=== PATIENT | male | born 1935 | race Caucasian/White ===

== ENCOUNTER 2018-02-25 10:16 | Emergency (ER) | payer MEDICARE ==
[~2018-02-25] VITALS: Ht 180.3 cm; Wt 130.9 kg
[2018-02-25 10:21] VITALS: TEMP 97.7
[2018-02-25 11:10] LABS: BASO # 0.1 (0.0-0.2); BASO % 0.9 % (0.0-2.0); EOS # 0.2 (0.0-0.7); EOS % 2.9 % (0-4.0); GRAN # 4.1 (1.4-6.5); GRAN % 58.4 % (42.2-75.2); HEMOGLOBIN 11.3 g/dl (13.5-18.0); LYMPH # 1.9 (1.2-3.4); MEAN CELL VOLUME 88 fl (80.0-100.0); MEAN CORPUSCULAR HEMOGLOBIN 30 pg (27.0-31.0); MEAN CORPUSCULAR HGB CONC 34 g/dl (33.0-37.0); MEAN PLATELET VOLUME 10.5 fl (7.4-10.4); MONO # 0.7 (0.1-0.6); MONO % 10.4 % (1.7-9.3); PLATELET COUNT 234 K/mm3 (130-400); RED BLOOD COUNT 3.77 M/mm3 (4.20-5.60); REDCELL DISTRIBUTION WIDTH-CV 13.8 % (11.5-14.5)
[2018-02-25 11:12] LABS: HEMATOCRIT 33.2 % (42.0-52.0)
[2018-02-25 11:17] LABS: BILIRUBIN,TOTAL 0.8 mg/dL (0.0-1.0); C-REACTIVE PROTEIN 2.4 mg/dL (0.0-0.9); CALCIUM 9.2 mg/dL (8.4-10.2); CREATININE, serum 2.58 mg/dL (0.66-1.25); POTASSIUM 3.5 mmol/L (3.4-5.0); TOTAL PROTEIN 8.1 gm/dL (6.4-8.2)
[2018-02-25] MEDS ORDERED: PERCOCET 325 MG1 TA2 PO (11:39)
[2018-02-25] MEDS ORDERED: MEVACOR40 MG PO (11:39)
[2018-02-25] MEDS ORDERED: LASIX 80MG TABL80 MG PO (11:40)
[2018-02-25] MEDS ORDERED: ZYLOPRIM 100MG100 MG PO (11:41)
[2018-02-25] MEDS ORDERED: COZAAR100 MG PO (11:41)
[2018-02-25] MEDS ORDERED: NEURONTIN300 MG/CAP PO (11:42)
[2018-02-25] MEDS ORDERED: FLOMAX 0.40.4 MG/CAP PO (11:43)
[2018-02-25] MEDS ORDERED: ZANAFLEX 4MG TAB4 MG PO (11:43)
[2018-02-25] MEDS ORDERED: TRESIBA FL200 UNIT/1 SQ (11:47)
[2018-02-25] MEDS ORDERED: ZAROXOLYN 2.52.5 MG PO (11:48)
[2018-02-25] MEDS ORDERED: FLONASE NASAL S16 GM NS (11:50)
[2018-02-25] MEDS ORDERED: PROAIR RES117 MCG/Ac IH (11:51)
[2018-02-25] MEDS ORDERED: MASON NATURAL500 MG PO (11:52)
[2018-02-25] MEDS ORDERED: CRANBERRY 100 M1 SGL (11:52)
[2018-02-25] MEDS ORDERED: OMEGA-3 1000 MG1 CAP PO (11:52)
[2018-02-25] MEDS ORDERED: MELATONIN5 M1 SL (11:53)
[2018-02-25] MEDS ORDERED: PROTONIX 40MG T40 MG PO (11:54)
[2018-02-25] MEDS ORDERED: PROSCAR 5MG5 MG PO (11:57)
[2018-02-25 14:20] VITALS: BP 123/72; PULSE 85
== END 2018-02-25 14:20 | disposition home or self-care (01) ==
LOC: COL.ER 10:16
PROVIDERS: Family Medicine
DX: E11.43 Type 2 diabetes mellitus with diabetic autonomic (poly)neuropathy (principal); E11.40 Type 2 diabetes mellitus with diabetic neuropathy, unspecified; K31.84 Gastroparesis; Z90.49 Acquired absence of other specified parts of digestive tract; Z79.4 Long term (current) use of insulin
CPT/HCPCS: J1815; J2405; J7030

== ENCOUNTER → 2018-03-19 | Outpatient (REF) ==
[~2018-03-19] MED LIST: COZAAR100 MG PO; CRANBERRY 100 M1 SGL; FLOMAX 0.40.4 MG/CAP PO; FLONASE NASAL S16 GM NS; LASIX 80MG TABL80 MG PO; LEVAQUIN 750MG750 M1 PO; LEVEMIR100 U/ML SQ; MASON NATURAL500 MG PO; MELATONIN5 M1 SL; MEVACOR40 MG PO; NEURONTIN300 MG/CAP PO; NOVLOG SQ; NOVOLOG 100U100 U/M1 SQ; OMEGA-3 1000 MG1 CAP PO; PERCOCET 325 MG1 TA2 PO; PREDNISONE20 MG PO; PROAIR RES117 MCG/Ac IH; PROSCAR 5MG5 MG PO; PROTONIX 40MG T40 MG PO; REGLAN 10MG10 MG/TAB PO; TRESIBA FL200 UNIT/1 SQ; ZANAFLEX 4MG TAB4 MG PO; ZAROXOLYN 2.52.5 MG PO; ZYLOPRIM 100MG100 MG PO
[2018-03-19 09:40] LABS: CALCIUM 9.2 mg/dL (8.4-10.2); CREATININE, serum 1.2 mg/dL (0.66-1.25); POTASSIUM 5.1 mmol/L (3.4-5.0)
== END ==
LOC: ZLAB.STJ 09:16
PROVIDERS: Internal Medicine
DX: Z01.89 Encounter for other specified special examinations (principal)

== ENCOUNTER → 2018-03-20 | Outpatient (REF) ==
[2018-03-20 09:29] LABS: HEMOGLOBIN 10.9 g/dl (13.5-18.0); MEAN CELL VOLUME 89 fl (80.0-100.0); MEAN CORPUSCULAR HEMOGLOBIN 29 pg (27.0-31.0); MEAN CORPUSCULAR HGB CONC 33 g/dl (33.0-37.0); MEAN PLATELET VOLUME 8.9 fl (7.4-10.4); PLATELET COUNT 519 K/mm3 (130-400); RED BLOOD COUNT 3.72 M/mm3 (4.20-5.60); REDCELL DISTRIBUTION WIDTH-CV 14.5 % (11.5-14.5)
[2018-03-20 10:06] LABS: BAND 3 % (0-10); EOSINOPHIL 3 % (0-4); LYMPHOCYTE 37 % (20.0-51.0); NEUTROPHILS 55 % (42.0-75.2)
[2018-03-20 10:07] LABS: PLATELET ESTIMATE NORMAL (NORMAL)
== END ==
LOC: ZLAB.STJ 09:23
PROVIDERS: Internal Medicine
DX: D64.9 Anemia, unspecified (principal)

== ENCOUNTER → 2018-06-04 | Outpatient (CLI) | payer MEDICARE | LOC: SUN.DIA 05-08 14:11 | DX: E11.40 Type 2 diabetes mellitus with diabetic neuropathy, unspecified (principal); E03.9 Hypothyroidism, unspecified; I10 Essential (primary) hypertension; E66.9 Obesity, unspecified; F17.210 Nicotine dependence, cigarettes, uncomplicated | CPT/HCPCS: G0108 ==

== ENCOUNTER 2018-06-11 00:54 | Observation (INO) | payer MEDICARE ==
[~2018-06-11] VITALS: Ht 180.3 cm; Wt 130.5 kg
[2018-06-11 01:22] LABS: BASO # 0.1 (0.0-0.2); BASO % 1.2 % (0.0-2.0); EOS # 0.4 (0.0-0.7); EOS % 4.1 % (0-4.0); GRAN # 5.2 (1.4-6.5); GRAN % 50.6 % (42.2-75.2); HEMOGLOBIN 10.6 g/dl (13.5-18.0); LYMPH # 3.5 (1.2-3.4); LYMPH % 34.5 % (20.0-51.0); MEAN CELL VOLUME 87 fl (80.0-100.0); MEAN CORPUSCULAR HEMOGLOBIN 28 pg (27.0-31.0); MEAN CORPUSCULAR HGB CONC 32 g/dl (33.0-37.0); MEAN PLATELET VOLUME 9.6 fl (7.4-10.4); MONO % 9.3 % (1.7-9.3); PLATELET COUNT 289 K/mm3 (130-400); RED BLOOD COUNT 3.78 M/mm3 (4.20-5.60); REDCELL DISTRIBUTION WIDTH-CV 14.2 % (11.5-14.5)
[2018-06-11 01:26] LABS: HEMATOCRIT 32.8 % (42.0-52.0)
[2018-06-11 01:28] LABS: INR 1.1 (0.8-3.0); PROTHROMBIN TIME 12.9 SECONDS (9.7-12.8)
[2018-06-11 01:33] LABS: ALANINE AMINOTRANSFERASE 25 U/L (21-72); ALBUMIN 4.2 gm/dL (3.5-5.0); ALKALINE PHOSPHATASE 66 U/L (50-136); ANION GAP 9 mmol/L (7-16); AST,SGOT 22 U/L (15-37); BILIRUBIN,TOTAL 0.2 mg/dL (0.0-1.0); BLOOD UREA NITROGEN 79 mg/dL (9-20); CALCIUM 8.8 mg/dL (8.4-10.2); CARBON DIOXIDE 33 mmol/L (22-30); CREATININE, serum 2.97 mg/dL (0.66-1.25); GLUCOSE 92 mg/dL (74-106); SODIUM 131 mmol/L (137-145); TOTAL PROTEIN 7.9 gm/dL (6.4-8.2)
[2018-06-11 01:35] LABS: CHLORIDE 89 mmol/L (98-107)
[2018-06-11 01:45] LABS: TROPONIN-I < 0.012 ng/mL (0.000-0.034)
[2018-06-11] MEDS ORDERED: LEVEMIR SQ (03:06)
[2018-06-11] MEDS ORDERED: ZANAFLEX 4MG TAB4 MG PO (03:07)
[2018-06-11] MEDS ORDERED: LASIX 80MG TABL80 MG PO (03:08)
[2018-06-11] MEDS ORDERED: ZAROXOLYN 2.52.5 MG PO (03:08)
[2018-06-11] MEDS ORDERED: COZAAR 50MG50 MG/TAB PO (03:09)
[2018-06-11] MEDS ORDERED: COREG 3.123.125 MG/T PO (03:23)
[2018-06-11] MEDS ORDERED: PERCOCET 325 MG1 TAB PO (05:51)
[2018-06-11] MEDS ORDERED: NOVOLOG 100U100 U/M1 SQ (07:03)
[2018-06-11 08:13] VITALS: BP 119/51; PULSE 50; TEMP 96.9
[2018-06-11 11:27] VITALS: BP 123/52; PULSE 59; TEMP 97.7
[2018-06-11 16:07] VITALS: BP 126/46; PULSE 60; TEMP 97.1
[2018-06-11 18:57] VITALS: BP 137/54; PULSE 68; TEMP 98
[2018-06-12 02:25] VITALS: BP 142/63; PULSE 62; TEMP 97.8
[2018-06-12 06:29] LABS: BASO # 0.1 (0.0-0.2); BASO % 1.3 % (0.0-2.0); EOS # 0.5 (0.0-0.7); EOS % 6.1 % (0-4.0); GRAN # 3.4 (1.4-6.5); GRAN % 44.9 % (42.2-75.2); HEMOGLOBIN 10.3 g/dl (13.5-18.0); LYMPH # 2.9 (1.2-3.4); LYMPH % 38.1 % (20.0-51.0); MEAN CELL VOLUME 86 fl (80.0-100.0); MEAN CORPUSCULAR HEMOGLOBIN 28 pg (27.0-31.0); MEAN CORPUSCULAR HGB CONC 33 g/dl (33.0-37.0); MEAN PLATELET VOLUME 10.5 fl (7.4-10.4); MONO # 0.7 (0.1-0.6); MONO % 9.3 % (1.7-9.3); PLATELET COUNT 279 K/mm3 (130-400); RED BLOOD COUNT 3.68 M/mm3 (4.20-5.60)
[2018-06-12 06:41] LABS: CALCIUM 8.8 mg/dL (8.4-10.2); CREATININE, serum 1.68 mg/dL (0.66-1.25); POTASSIUM 3.4 mmol/L (3.4-5.0)
[2018-06-12 06:42] LABS: HEMATOCRIT 31.6 % (42.0-52.0)
[2018-06-12 07:12] VITALS: BP 138/60; PULSE 58; TEMP 98.4
[2018-06-12] MEDS ORDERED: ZAROXOLYN 2.52.5 MG PO (11:21)
[2018-06-12] MEDS ORDERED: COZAAR 50MG50 MG/TAB PO (11:30)
[2018-06-12 11:34] VITALS: BP 139/56; PULSE 51; TEMP 97.8
== END 2018-06-12 16:15 | disposition home or self-care (01) ==
LOC: COL.ER 00:54 → MEDICAL 02:19
PROVIDERS: Emergency Medicine; Nurse Practitioner
DX: R42 Dizziness and giddiness (principal); R00.1 Bradycardia, unspecified; I12.9 Hypertensive chronic kidney disease with stage 1 through stage 4 chronic kidney disease, or unspecified chronic kidney disease; E11.22 Type 2 diabetes mellitus with diabetic chronic kidney disease; N18.3 Chronic kidney disease, stage 3 (moderate); N17.9 Acute kidney failure, unspecified; I95.9 Hypotension, unspecified; E78.5 Hyperlipidemia, unspecified; K21.9 Gastro-esophageal reflux disease without esophagitis; Z79.4 Long term (current) use of insulin; Z79.82 Long term (current) use of aspirin; Z90.49 Acquired absence of other specified parts of digestive tract; Z90.6 Acquired absence of other parts of urinary tract; Z96.653 Presence of artificial knee joint, bilateral; Z96.611 Presence of right artificial shoulder joint; Z96.612 Presence of left artificial shoulder joint; Z87.891 Personal history of nicotine dependence; Z88.3 Allergy status to other anti-infective agents; Z88.8 Allergy status to other drugs, medicaments and biological substances; Z91.040 Latex allergy status; Z88.0 Allergy status to penicillin; Z82.49 Family history of ischemic heart disease and other diseases of the circulatory system
CPT/HCPCS: G0008; G0378; G8978-GP; G8979-GP; G8985-GO; G8987-GO; J1644; J1815; J7030

== ENCOUNTER → 2018-06-27 | Outpatient (CLI) | payer MEDICARE ==
[~2018-06-27] MED LIST changes: +COREG 3.123.125 MG/T PO; +COZAAR 50MG50 MG/TAB PO; +LEVEMIR SQ; +PERCOCET 325 MG1 TAB PO
== END ==
LOC: SUN.DIA 10:45
DX: E11.40 Type 2 diabetes mellitus with diabetic neuropathy, unspecified (principal); E03.9 Hypothyroidism, unspecified; I10 Essential (primary) hypertension; E66.9 Obesity, unspecified; F17.210 Nicotine dependence, cigarettes, uncomplicated

== ENCOUNTER → 2018-06-27 | Outpatient (CLI) | payer MEDICARE | LOC: COL.RAD 13:26 | DX: M25.561 Pain in right knee (principal); Z96.651 Presence of right artificial knee joint ==

== ENCOUNTER 2018-07-21 14:34 | Inpatient (IN) | payer MEDICARE ==
[~2018-07-21] VITALS: Ht 180.3 cm; Wt 133.4 kg
[2018-07-21 15:33] LABS: BASO # 0.1 (0.0-0.2); BASO % 0.4 % (0.0-2.0); EOS % 0.2 % (0-4.0); GRAN # 8.6 (1.4-6.5); GRAN % 67.3 % (42.2-75.2); HEMOGLOBIN 10.5 g/dl (13.5-18.0); LYMPH # 2.8 (1.2-3.4); LYMPH % 21.8 % (20.0-51.0); MEAN CELL VOLUME 86 fl (80.0-100.0); MEAN CORPUSCULAR HEMOGLOBIN 28 pg (27.0-31.0); MEAN CORPUSCULAR HGB CONC 33 g/dl (33.0-37.0); MEAN PLATELET VOLUME 10.2 fl (7.4-10.4); MONO # 1.3 (0.1-0.6); MONO % 9.9 % (1.7-9.3); PLATELET COUNT 222 K/mm3 (130-400); RED BLOOD COUNT 3.77 M/mm3 (4.20-5.60); REDCELL DISTRIBUTION WIDTH-CV 14.3 % (11.5-14.5)
[2018-07-21 15:35] LABS: HEMATOCRIT 32.3 % (42.0-52.0)
[2018-07-21 15:47] LABS: ALANINE AMINOTRANSFERASE 24 U/L (21-72); ALKALINE PHOSPHATASE 58 U/L (50-136); ANION GAP 7 mmol/L (7-16); AST,SGOT 17 U/L (15-37); BILIRUBIN,TOTAL 0.6 mg/dL (0.0-1.0); BLOOD UREA NITROGEN 43 mg/dL (9-20); CARBON DIOXIDE 30 mmol/L (22-30); CHLORIDE 103 mmol/L (98-107); CREATININE, serum 1.84 mg/dL (0.66-1.25); GLUCOSE 135 mg/dL (74-106); LIPASE < 10 U/L (23-300); POTASSIUM 4.1 mmol/L (3.4-5.0); SODIUM 140 mmol/L (137-145); TOTAL PROTEIN 7.4 gm/dL (6.4-8.2)
[2018-07-21 16:10] LABS: ERYTHROCYTE SEDIMENTATION RATE 55 mm/hr (0-30)
[2018-07-21 17:30] LABS: COLLECTION METHOD CLEAN CATCH
[2018-07-21 17:35] LABS: PH 5 (5-8); SQUAMOUS EPITHELIAL None Seen /hpf; URINE APPEARANCE Clear; URINE BACTERIA None Seen /hpf; URINE BILIRUBIN Negative (NEGATIVE); URINE BLOOD Negative (NEGATIVE); URINE COLOR Yellow; URINE GLUCOSE Negative (NEGATIVE); URINE KETONE Negative (NEGATIVE); URINE LEUKOCYTE ESTERASE Negative (NEGATIVE); URINE NITRATE Negative (NEGATIVE); URINE PROTEIN(semi-quant) Negative (NEGATIVE); URINE RBC 0-2 /hpf; URINE UROBILINOGEN Negative (NEGATIVE)
[2018-07-21 20:16] VITALS: BP 125/51; PULSE 86; TEMP 99
[2018-07-21 21:51] VITALS: BP 125/51; PULSE 86; TEMP 99
[2018-07-22 00:55] VITALS: BP 145/56; PULSE 85; TEMP 99.5
[2018-07-22 04:40] VITALS: BP 130/58; PULSE 61; TEMP 97.7
[2018-07-22 06:25] LABS: MEAN CELL VOLUME 87 fl (80.0-100.0); MEAN CORPUSCULAR HGB CONC 32 g/dl (33.0-37.0); MEAN PLATELET VOLUME 10.7 fl (7.4-10.4); PLATELET COUNT 197 K/mm3 (130-400); RED BLOOD COUNT 3.38 M/mm3 (4.20-5.60); REDCELL DISTRIBUTION WIDTH-CV 14.4 % (11.5-14.5)
[2018-07-22 06:30] LABS: HEMATOCRIT 29.3 % (42.0-52.0); HEMOGLOBIN 9.5 g/dl (13.5-18.0); MEAN CORPUSCULAR HEMOGLOBIN 28 pg (27.0-31.0)
[2018-07-22 06:31] LABS: CALCIUM 8.5 mg/dL (8.4-10.2); CREATININE, serum 1.96 mg/dL (0.66-1.25); POTASSIUM 3.8 mmol/L (3.4-5.0)
[2018-07-22 07:06] LABS: BAND 2 % (0-10); HYPOCHROMIA 1+; LYMPHOCYTE 23 % (20.0-51.0); NEUTROPHILS 67 % (42.0-75.2); PLATELET ESTIMATE NORMAL (NORMAL)
[2018-07-22 07:36] VITALS: BP 130/55; PULSE 74; TEMP 99
[2018-07-22 13:17] VITALS: BP 152/57; PULSE 77; TEMP 99.1
[2018-07-22 15:31] VITALS: BP 129/54; PULSE 68; TEMP 98.9
[2018-07-22 20:36] VITALS: BP 142/55; PULSE 85; TEMP 100.7
[2018-07-23] VITALS (8 sets, daily range): BP systolic 105–159; BP diastolic 47–63; PULSE 55–94; TEMP 98.1–103.1
[2018-07-23 07:17] LABS: BASO # 0.1 (0.0-0.2); BASO % 0.3 % (0.0-2.0); GRAN # 12.1 (1.4-6.5); GRAN % 79.2 % (42.2-75.2); LYMPH # 1.5 (1.2-3.4); MEAN CELL VOLUME 85 fl (80.0-100.0); MEAN CORPUSCULAR HGB CONC 33 g/dl (33.0-37.0); MEAN PLATELET VOLUME 10.3 fl (7.4-10.4); MONO # 1.5 (0.1-0.6); MONO % 9.6 % (1.7-9.3); PLATELET COUNT 195 K/mm3 (130-400); RED BLOOD COUNT 3.44 M/mm3 (4.20-5.60); REDCELL DISTRIBUTION WIDTH-CV 14.1 % (11.5-14.5)
[2018-07-23 07:20] LABS: HEMATOCRIT 29.1 % (42.0-52.0); HEMOGLOBIN 9.7 g/dl (13.5-18.0); MEAN CORPUSCULAR HEMOGLOBIN 28 pg (27.0-31.0)
[2018-07-23 07:27] LABS: CALCIUM 8.6 mg/dL (8.4-10.2); CREATININE, serum 1.88 mg/dL (0.66-1.25); POTASSIUM 3.7 mmol/L (3.4-5.0)
[2018-07-24] VITALS (7 sets, daily range): BP systolic 99–153; BP diastolic 46–58; PULSE 49–80; TEMP 98.2–101.4
[2018-07-24 06:57] LABS: MEAN CELL VOLUME 84 fl (80.0-100.0); MEAN CORPUSCULAR HGB CONC 34 g/dl (33.0-37.0); MEAN PLATELET VOLUME 11.1 fl (7.4-10.4); PLATELET COUNT 196 K/mm3 (130-400); RED BLOOD COUNT 3.33 M/mm3 (4.20-5.60); REDCELL DISTRIBUTION WIDTH-CV 14.1 % (11.5-14.5)
[2018-07-24 06:59] LABS: HEMATOCRIT 28.1 % (42.0-52.0); HEMOGLOBIN 9.4 g/dl (13.5-18.0); MEAN CORPUSCULAR HEMOGLOBIN 28 pg (27.0-31.0)
[2018-07-24 07:09] LABS: CALCIUM 8.5 mg/dL (8.4-10.2); CREATININE, serum 2.15 mg/dL (0.66-1.25); POTASSIUM 3.9 mmol/L (3.4-5.0)
[2018-07-24 07:14] LABS: BAND 6 % (0-10); LYMPHOCYTE 17 % (20.0-51.0); NEUTROPHILS 70 % (42.0-75.2); PLATELET ESTIMATE NORMAL (NORMAL)
[2018-07-25 01:43] VITALS: BP 140/50; PULSE 75; TEMP 99
[2018-07-25 05:40] VITALS: BP 104/53; PULSE 63; TEMP 98.7
[2018-07-25 07:04] VITALS: BP 112/48; PULSE 61; TEMP 98.4
[2018-07-25 07:09] LABS: BASO % 0.2 % (0.0-2.0); EOS % 0.3 % (0-4.0); GRAN # 9.2 (1.4-6.5); LYMPH % 15.8 % (20.0-51.0); MEAN CELL VOLUME 85 fl (80.0-100.0); MEAN CORPUSCULAR HGB CONC 33 g/dl (33.0-37.0); MEAN PLATELET VOLUME 10.3 fl (7.4-10.4); MONO # 1.3 (0.1-0.6); MONO % 10.1 % (1.7-9.3); PLATELET COUNT 214 K/mm3 (130-400); RED BLOOD COUNT 3.23 M/mm3 (4.20-5.60)
[2018-07-25 07:10] LABS: HEMATOCRIT 27.5 % (42.0-52.0); MEAN CORPUSCULAR HEMOGLOBIN 28 pg (27.0-31.0)
[2018-07-25 07:18] LABS: CALCIUM 8.4 mg/dL (8.4-10.2); CREATININE, serum 2.09 mg/dL (0.66-1.25); POTASSIUM 3.4 mmol/L (3.4-5.0)
[2018-07-25 11:04] VITALS: BP 105/46; PULSE 66; TEMP 98.8
[2018-07-25 15:14] VITALS: BP 133/53; PULSE 63; TEMP 98.6
[2018-07-25 21:59] VITALS: BP 137/51; PULSE 63; TEMP 99.5
[2018-07-26 04:26] VITALS: BP 135/50; PULSE 57; TEMP 98.2
[2018-07-26 07:07] LABS: BASO % 0.4 % (0.0-2.0); EOS # 0.3 (0.0-0.7); EOS % 2.8 % (0-4.0); GRAN % 66.2 % (42.2-75.2); LYMPH % 19.4 % (20.0-51.0); MEAN CELL VOLUME 85 fl (80.0-100.0); MEAN CORPUSCULAR HGB CONC 33 g/dl (33.0-37.0); MEAN PLATELET VOLUME 10.6 fl (7.4-10.4); MONO # 1.1 (0.1-0.6); MONO % 10.6 % (1.7-9.3); PLATELET COUNT 235 K/mm3 (130-400); RED BLOOD COUNT 3.23 M/mm3 (4.20-5.60); REDCELL DISTRIBUTION WIDTH-CV 14.3 % (11.5-14.5)
[2018-07-26 07:09] LABS: HEMATOCRIT 27.5 % (42.0-52.0); HEMOGLOBIN 9.1 g/dl (13.5-18.0); MEAN CORPUSCULAR HEMOGLOBIN 28 pg (27.0-31.0)
[2018-07-26 07:20] LABS: CALCIUM 8.3 mg/dL (8.4-10.2); CREATININE, serum 2.19 mg/dL (0.66-1.25); POTASSIUM 3.4 mmol/L (3.4-5.0)
[2018-07-26 08:13] VITALS: BP 127/52; PULSE 57; TEMP 98.5
[2018-07-26] MEDS ORDERED: MIRALAX PA17 GM/Dose PO (09:51)
[2018-07-26] MEDS ORDERED: COLACE 100100 MG/CAP PO ×2 (09:51→12:40)
[2018-07-26] MEDS ORDERED: REGLAN 10MG10 MG/TAB PO (10:26)
[2018-07-26] MEDS ORDERED: NORVASC2.5 MG PO (10:27)
[2018-07-26] MEDS ORDERED: MELATONIN5 M1 SL (10:33)
[2018-07-26 12:20] VITALS: BP 129/51; PULSE 73; TEMP 98.8
[2018-07-26] MEDS ORDERED: DOXYCYCLINE 10100 MG PO (12:39)
[2018-07-26] MEDS ORDERED: LEADER CLE17 GM/Dose PO (12:41)
[2018-07-26] MEDS ORDERED: LIDODERM 5% PATC1 EA TP (12:42)
[2018-07-26] MEDS ORDERED: ZYLOPRIM 100MG100 MG PO (12:43)
[2018-07-26] MEDS ORDERED: PREDNISONE20 MG PO (12:43)
[2018-07-26 14:48] VITALS: BP 129/51; PULSE 73; TEMP 98.8
== END 2018-07-26 16:45 | DRG 552 ==
LOC: COL.ER 14:34 → MEDICAL 18:26
PROVIDERS: Emergency Medicine; Nurse Practitioner; Physician Assistant
DX: M54.5 Low back pain (principal); L03.116 Cellulitis of left lower limb; L03.115 Cellulitis of right lower limb; Z66 Do not resuscitate; E78.5 Hyperlipidemia, unspecified; I12.9 Hypertensive chronic kidney disease with stage 1 through stage 4 chronic kidney disease, or unspecified chronic kidney disease; E11.22 Type 2 diabetes mellitus with diabetic chronic kidney disease; N18.3 Chronic kidney disease, stage 3 (moderate); Z79.4 Long term (current) use of insulin; Z87.891 Personal history of nicotine dependence; D63.1 Anemia in chronic kidney disease; E11.42 Type 2 diabetes mellitus with diabetic polyneuropathy; H91.8X3 Other specified hearing loss, bilateral; M10.9 Gout, unspecified
CPT/HCPCS: 99222-AI; 99231-AI; 99232-AI; 99239; A4216; G8978-GP; G8979-GP; J0692; J0696; J0744; J0878; J1170; J1644; J1815; J2270; J2405; J3370; J7030; J7040; J7050; J7512

== ENCOUNTER 2018-08-09 11:40 | Emergency (ER) | payer MEDICARE ==
[~2018-08-09 11:40] MED LIST changes: +COLACE 100100 MG/CAP PO; +DOXYCYCLINE 10100 MG PO; +LEADER CLE17 GM/Dose PO; +LIDODERM 5% PATC1 EA TP; +MIRALAX PA17 GM/Dose PO; +NORVASC2.5 MG PO
[2018-08-09 12:07] VITALS: TEMP 97.1
[2018-08-09 12:37] LABS: BASO # 0.1 (0.0-0.2); BASO % 0.8 % (0.0-2.0); EOS # 0.4 (0.0-0.7); EOS % 3.4 % (0-4.0); GRAN # 8.1 (1.4-6.5); GRAN % 68.4 % (42.2-75.2); LYMPH # 2.3 (1.2-3.4); LYMPH % 19.7 % (20.0-51.0); MEAN CELL VOLUME 87 fl (80.0-100.0); MEAN CORPUSCULAR HGB CONC 32 g/dl (33.0-37.0); MEAN PLATELET VOLUME 9.7 fl (7.4-10.4); MONO # 0.9 (0.1-0.6); MONO % 7.3 % (1.7-9.3); PLATELET COUNT 311 K/mm3 (130-400); RED BLOOD COUNT 3.41 M/mm3 (4.20-5.60); REDCELL DISTRIBUTION WIDTH-CV 14.9 % (11.5-14.5)
[2018-08-09 12:40] LABS: HEMATOCRIT 29.7 % (42.0-52.0); HEMOGLOBIN 9.5 g/dl (13.5-18.0); MEAN CORPUSCULAR HEMOGLOBIN 28 pg (27.0-31.0)
[2018-08-09 12:45] LABS: ALBUMIN 3.2 gm/dL (3.5-5.0); BILIRUBIN,TOTAL 0.4 mg/dL (0.0-1.0); CALCIUM 8.8 mg/dL (8.4-10.2); CREATININE, serum 1.79 mg/dL (0.66-1.25); POTASSIUM 4.7 mmol/L (3.4-5.0); TOTAL PROTEIN 6.4 gm/dL (6.4-8.2)
[2018-08-09 13:27] LABS: COLLECTION METHOD CLEAN CATCH
[2018-08-09 13:35] LABS: HYALINE CAST >12 /lpf; PH 5 (5-8); SQUAMOUS EPITHELIAL None Seen /hpf; URINE APPEARANCE Clear; URINE BACTERIA None Seen /hpf; URINE BILIRUBIN Negative (NEGATIVE); URINE BLOOD Negative (NEGATIVE); URINE COLOR Yellow; URINE GLUCOSE Negative (NEGATIVE); URINE KETONE Negative (NEGATIVE); URINE LEUKOCYTE ESTERASE Negative (NEGATIVE); URINE NITRATE Negative (NEGATIVE); URINE PROTEIN(semi-quant) Negative (NEGATIVE); URINE RBC 0-2 /hpf; URINE UROBILINOGEN Negative (NEGATIVE)
[2018-08-09 14:33] VITALS: BP 121/70; PULSE 63
== END 2018-08-09 15:15 | disposition home or self-care (01) ==
LOC: COL.ER 11:40
PROVIDERS: Emergency Medicine
DX: I95.9 Hypotension, unspecified (principal); R55 Syncope and collapse; E11.9 Type 2 diabetes mellitus without complications; I10 Essential (primary) hypertension; Z79.4 Long term (current) use of insulin; Z98.890 Other specified postprocedural states; Z90.49 Acquired absence of other specified parts of digestive tract; Z87.891 Personal history of nicotine dependence; Z79.51 Long term (current) use of inhaled steroids

== ENCOUNTER → 2018-08-27 | Outpatient (CLI) | payer MEDICARE ==
[2018-08-27 16:41] LABS: BASO # 0.1 (0.0-0.2); BASO % 0.5 % (0.0-2.0); EOS # 0.1 (0.0-0.7); EOS % 0.4 % (0-4.0); GRAN # 11.2 (1.4-6.5); GRAN % 77.1 % (42.2-75.2); LYMPH # 1.9 (1.2-3.4); LYMPH % 13.3 % (20.0-51.0); MEAN CELL VOLUME 88 fl (80.0-100.0); MEAN CORPUSCULAR HGB CONC 31 g/dl (33.0-37.0); MEAN PLATELET VOLUME 11.2 fl (7.4-10.4); MONO # 1.2 (0.1-0.6); MONO % 8.2 % (1.7-9.3); PLATELET COUNT 324 K/mm3 (130-400); RED BLOOD COUNT 3.48 M/mm3 (4.20-5.60); REDCELL DISTRIBUTION WIDTH-CV 15.2 % (11.5-14.5)
[2018-08-27 16:52] LABS: ALBUMIN 3.6 gm/dL (3.5-5.0); BILIRUBIN,TOTAL 0.6 mg/dL (0.0-1.0); CALCIUM 8.9 mg/dL (8.4-10.2); CREATININE, serum 1.75 mg/dL (0.66-1.25); POTASSIUM 4.2 mmol/L (3.4-5.0); TOTAL PROTEIN 7.1 gm/dL (6.4-8.2)
[2018-08-27 17:00] LABS: HEMATOCRIT 30.6 % (42.0-52.0); HEMOGLOBIN 9.6 g/dl (13.5-18.0); MEAN CORPUSCULAR HEMOGLOBIN 28 pg (27.0-31.0)
== END ==
LOC: ZCOL.LAB 16:19
PROVIDERS: Family Medicine
DX: M10.9 Gout, unspecified (principal); E11.9 Type 2 diabetes mellitus without complications

== ENCOUNTER → 2018-12-03 | Outpatient (CLI) | payer MEDICARE ==
[2018-12-03 17:08] LABS: BASO # 0.1 (0.0-0.2); EOS # 0.4 (0.0-0.7); EOS % 4.4 % (0-4.0); GRAN # 5.3 (1.4-6.5); GRAN % 57.6 % (42.2-75.2); HEMOGLOBIN 11.1 g/dl (13.5-18.0); LYMPH # 2.6 (1.2-3.4); LYMPH % 28.9 % (20.0-51.0); MEAN CELL VOLUME 87 fl (80.0-100.0); MEAN CORPUSCULAR HEMOGLOBIN 28 pg (27.0-31.0); MEAN CORPUSCULAR HGB CONC 32 g/dl (33.0-37.0); MEAN PLATELET VOLUME 11.3 fl (7.4-10.4); MONO # 0.7 (0.1-0.6); MONO % 7.7 % (1.7-9.3); PLATELET COUNT 257 K/mm3 (130-400); RED BLOOD COUNT 3.96 M/mm3 (4.20-5.60); REDCELL DISTRIBUTION WIDTH-CV 14.6 % (11.5-14.5)
[2018-12-03 17:16] LABS: BILIRUBIN,TOTAL 0.3 mg/dL (0.0-1.0); CALCIUM 9.2 mg/dL (8.4-10.2); CREATININE, serum 1.89 mg/dL (0.66-1.25); POTASSIUM 4.4 mmol/L (3.4-5.0); TOTAL PROTEIN 7.5 gm/dL (6.4-8.2)
[2018-12-03 17:20] LABS: HEMATOCRIT 34.3 % (42.0-52.0)
== END ==
LOC: ZCOL.LAB 16:59
PROVIDERS: Family Medicine
DX: Z01.818 Encounter for other preprocedural examination (principal); N40.1 Benign prostatic hyperplasia with lower urinary tract symptoms

== ENCOUNTER → 2018-12-06 | Outpatient (CLI) | payer MEDICARE | LOC: COL.RAD 08:36 | DX: Z01.818 Encounter for other preprocedural examination (principal); N40.1 Benign prostatic hyperplasia with lower urinary tract symptoms ==

== ENCOUNTER 2018-12-11 11:55 | Day surgery (SDC) | payer MEDICARE ==
[~2018-12-11] VITALS: Ht 180.3 cm; Wt 132.3 kg
[2018-12-11] VITALS (9 sets, daily range): BP systolic 128–158; BP diastolic 55–87; PULSE 49–75; TEMP 97.5–98.4
[~2018-12-11 11:55] MED LIST changes: +MELATONIN1 MG PO
[2018-12-11] MEDS ORDERED: COZAAR 25MG25 MG/TAB PO (14:30)
[2018-12-11] MEDS ORDERED: NORVASC 5MG5 MG/TAB PO (14:31)
[2018-12-11] MEDS ORDERED: MIRALAX PA17 GM/Dose PO (14:35)
[2018-12-11] MEDS ORDERED: VITAMIN D31000 I1 PO (14:40)
--- NOTE | 2018-12-11 17:40 | NUR ---
PT TO ROOM 350 PER BED WITH REPORT FROM HILARIO LOU [email or web address]. PT IS A/O X3, LUNGS CLEAR, BOWEL SOUNDS PRESENT IV TO LFA WITH NS RUNNING PER PACU. PT IS DEAF AND HAS INTERPRETOR WITH HIM UNTILL 1800. VSS SEE CHARTING. [address] WAY HYATT WITH CBI RUNNING CLEAR FLUID IN HYATT BAG. PT C/O PAIN PO PAIN MEDS GIVEN PER ORDERS.
--- NOTE | 2018-12-11 17:42 | NUR ---
PT HAS WOUND TO COCCYX ON ARRIVAL COVERED WITH MEPLEX. BILATERAL EDEMA AND DIABETIC SCALY LEGS PT DOES SEE WOUND CARE FOR DIABETIC WOUNDS.
[2018-12-12 00:07] VITALS: BP 111/46; PULSE 54; TEMP 97.7
--- NOTE | 2018-12-12 01:04 | NUR ---
PT completed medication administration and assessment; PT tolerated all cares well; PT able to tolerate snacks and insulin; PT provided white board with marker to assist with improved communication without signal worker here; PT A&Ox4, BS active x4, diminished bases bilaterally, HRRR, catheter in place draining poe color with minimal small clotting to dependent drainage bag; No reported pain or discomfort; dry scaling bilateral LE with socks and SCDs in place; Allevyn with board dressing in place over stage I ulcer; No further assessed or reported needs at time of exit; PT able to get into comfortable position in bed with personal items and call light within reach; Will continue to monitor. CDA
--- NOTE | 2018-12-12 02:20 | NUR ---
PT resting well in bed with SCDs and catheter in placed draining poe color urine with minimal clots to dependent collections bag; No assessed or reported concerns or pain at time of rounds; PT able to return to comfortable position in bed with personal items and call light within reach; Will continue to monitor. CDA
[2018-12-12 04:19] VITALS: BP 130/58; PULSE 55; TEMP 98.6
--- NOTE | 2018-12-12 06:39 | NUR ---
Report given to CARMINE Kitchen; No significant changes at shift change. CDA
--- NOTE | 2018-12-12 07:04 | NUR ---
Report from Yasmine LOU.
[2018-12-12 07:24] VITALS: BP 141/59; PULSE 64; TEMP 97.8
--- NOTE | 2018-12-12 08:36 | NUR ---
PT RESTING IN BED WITH CBI RUNNING AT A SLOW DRIP REDDISH DRAINAGE IN HYATT BAG. PT DENIES PAIN. PT USING WHITE BOARD TO COMMUNICATE. DR BAKER IN TO SEE PATIENT. POSSIBLE DISCHARGE TOMMORROW AFTER 6 BOTTLE ROUTINE.
[2018-12-12 11:36] VITALS: BP 129/54; PULSE 60; TEMP 98.2
--- NOTE | 2018-12-12 11:48 | NUR ---
PT SLEEPING. PINK FLUID IN HYATT BAG WITH CBI RUNNING AT A SLOW DRIP.
--- NOTE | 2018-12-12 15:18 | NUR ---
pt up to br had BM and then returned to bed dressing changed to buttocks and pt possitioned for comfort.
--- NOTE | 2018-12-12 15:52 | NUR ---
KHARI and SW student met with the patient to discuss discharge plan. SW communicated with the patient via white board and by using the discharge planning worksheet. The patient lives alone in [place]. He states he receives support and help from his daughter, Ainsley. He reports independence with ADLs and has a cane and walker. The patient states he does not have home health services and is not interested in them at this time. The patient's PCP is Dr. Rica Pena and he receives his medications at the [facility]. He reports no difficulties obtaining his meds. He states that him or his daughter are able to pick them up. The patient plans to return home upon discharge. No identified needs at this time, but SW to continue to follow.
[2018-12-12 16:10] VITALS: BP 127/53; TEMP 98.1
--- NOTE | 2018-12-12 16:31 | NUR ---
CALLED FINDINGS OF NEW ONSET IRREGULAR HEART RYTHMS, SEE COMPUTER FOR NEW ORDERS.
[2018-12-12 17:10] LABS: BASO # 0.1 (0.0-0.2); BASO % 0.7 % (0.0-2.0); EOS # 0.4 (0.0-0.7); EOS % 3.5 % (0-4.0); GRAN # 6.7 (1.4-6.5); HEMOGLOBIN 10.6 g/dl (13.5-18.0); LYMPH # 2.6 (1.2-3.4); LYMPH % 24.5 % (20.0-51.0); MEAN CELL VOLUME 88 fl (80.0-100.0); MEAN CORPUSCULAR HEMOGLOBIN 28 pg (27.0-31.0); MEAN CORPUSCULAR HGB CONC 32 g/dl (33.0-37.0); MEAN PLATELET VOLUME 10.2 fl (7.4-10.4); MONO # 0.9 (0.1-0.6); PLATELET COUNT 268 K/mm3 (130-400); RED BLOOD COUNT 3.75 M/mm3 (4.20-5.60)
[2018-12-12 17:11] LABS: HEMATOCRIT 33.1 % (42.0-52.0)
[2018-12-12 17:21] LABS: ALBUMIN 3.6 gm/dL (3.5-5.0); BILIRUBIN,TOTAL 0.2 mg/dL (0.0-1.0); CALCIUM 8.7 mg/dL (8.4-10.2); CREATININE, serum 2.3 (0.66-1.25); MAGNESIUM 2.2 mg/dL (1.6-2.3); POTASSIUM 4.6 mmol/L (3.4-5.0); TOTAL PROTEIN 6.8 gm/dL (6.4-8.2)
[2018-12-12 17:52] LABS: TSH w REFLEX 0.581 uIU/mL (0.465-4.680)
--- NOTE | 2018-12-12 19:09 | NUR ---
report to Joie LOU.
[2018-12-12 19:55] VITALS: BP 138/46; PULSE 64; TEMP 97.9
--- NOTE | 2018-12-12 20:30 | NUR ---
HS meds along with insulin and SSI reviewed and given. Denies pain. Alert and oriented x 4. Communication board utilized for conversations/questions. States he just wants to go to sleep. Cath care done and brody cath to DD with clear yellow urine. CBI at very slow rate.
--- NOTE | 2018-12-13 03:15 | NUR ---
Patient resting awake in bed. Denies pain. Leslie emptied and draining clear pale urine.
[2018-12-13 03:24] VITALS: BP 145/54; PULSE 61; TEMP 98.3
--- NOTE | 2018-12-13 07:35 | NUR ---
report from Joie LOU.
[2018-12-13 08:21] VITALS: BP 156/59; PULSE 62; TEMP 98.2
--- NOTE | 2018-12-13 10:09 | NUR ---
HYATT CATHETER PRIMED AND PULLED. FIRST OF 6 BOTTLES COMPLETE. PT UP TO BR WITH SBA X1. PATIENT TOLERATED WELL. TIP INTACT 35 MLS FLUID REMOVED FROM BALLOON PRIOR TO REMOVAL.
[2018-12-13 12:30] VITALS: BP 132/53; PULSE 70; TEMP 98.2
[2018-12-13 15:45] VITALS: BP 147/58; PULSE 68; TEMP 98.5
--- NOTE | 2018-12-13 17:31 | NUR ---
DR BAKER IN AND DISCHARGED PT TO HOME. DISCHARGE INSTRUCTIONS REVIEWED WITH PATIENT AND FAMILY. ALL VERBALIZED UNDERSTANDING. PT TAKEN TO FRONT BY WHEEL CHAIR.
== END 2018-12-13 17:00 | disposition home or self-care (01) ==
LOC: SDCO 11:55 → SURG 17:00 → SDCO 12-13 17:00
PROVIDERS: Physician Assistant
DX: N40.1 Benign prostatic hyperplasia with lower urinary tract symptoms (principal); N13.8 Other obstructive and reflux uropathy; R33.8 Other retention of urine; R00.1 Bradycardia, unspecified; Z87.891 Personal history of nicotine dependence; Z88.0 Allergy status to penicillin; I12.9 Hypertensive chronic kidney disease with stage 1 through stage 4 chronic kidney disease, or unspecified chronic kidney disease; E11.22 Type 2 diabetes mellitus with diabetic chronic kidney disease; N18.3 Chronic kidney disease, stage 3 (moderate); E11.40 Type 2 diabetes mellitus with diabetic neuropathy, unspecified; Z79.4 Long term (current) use of insulin; E78.5 Hyperlipidemia, unspecified; H91.90 Unspecified hearing loss, unspecified ear; Z79.899 Other long term (current) drug therapy; K27.9 Peptic ulcer, site unspecified, unspecified as acute or chronic, without hemorrhage or perforation
CPT/HCPCS: OP; 99204; J0690; J1815; J2405; J2704; J2765; J3010; J7030

== ENCOUNTER → 2018-12-20 | Outpatient (CLI) | payer MEDICARE ==
[~2018-12-20] MED LIST changes: +COZAAR 25MG25 MG/TAB PO; +NORVASC 5MG5 MG/TAB PO; +VITAMIN D31000 I1 PO
== END ==
LOC: ZCOL.LAB 16:23
DX: R35.0 Frequency of micturition (principal)

== ENCOUNTER 2024-05-08 07:08 | Emergency (ER) | payer MEDICARE ==
[~2024-05-08] VITALS: Ht 180.3 cm; Wt 137.3 kg
[2024-05-08 07:17] VITALS: TEMP 97.8
[2024-05-08 07:58] VITALS: BP 137/61
[2024-05-08 08:36] VITALS: PULSE 89
== END 2024-05-08 08:41 | disposition home or self-care (01) ==
LOC: COL.ER 07:08
DX: S70.01XA Contusion of right hip, initial encounter (principal); M54.50 Low back pain, unspecified; M25.521 Pain in right elbow; Z91.040 Latex allergy status; W18.30XA Fall on same level, unspecified, initial encounter